=== PATIENT | female | born 1980 | race Caucasian/White ===

== ENCOUNTER 2016-08-13 19:38 | Emergency (ER) | payer OTHER ==
[2016-08-13] MEDS ORDERED: Ketorolac 60 MG/2 ML SDV IM ONE (21:08)
--- NOTE | 2016-08-13 21:09 | EDM.PDOC ---
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 She has no other complaints Symptom Onset Date: 08/13/16 Occurred When: just prior to arrival Occurred Where: work Method of Injury: direct blow Severity: mild Pain/Injury Location: Reports: upper extremity, left Consciousness: Reports: no loss of consciousness Associated Symptoms: Reports: no other symptoms Allergies/ADRs: Allergies latex Allergy (Verified 07/30/16 20:57) Rash loratadine [From Claritin-D] Allergy (Verified 07/30/16 20:57) Edema midazolam HCl [From Versed] Allergy (Verified 07/30/16 20:57) Confusion pseudoephedrine sulfate [From Claritin-D] Allergy (Verified 07/30/16 20:57) Edema Home Medications: Ambulatory Orders Norethindrone-E.estradiol-Iron [Gildess Fe 1-20] 1 tab PO DAILY 09/16/14 [ Confirmed 07/30/16] Haloperidol [Haldol] 2 mg PO Q6H #4 tab 07/30/16 Venlafaxine HCl [Venlafaxine ER] 150 mg PO DAILY 07/30/16 [Confirmed 07/30/16] Past Medical History HEENT History: Reports: Impaired vision Respiratory History: Reports: Pneumonia, recurrent Genitourinary History: Reports: Renal calculus Other Genitourinary History: Ureter stent Psychiatric History: Reports: Anxiety, Depression - Infectious Disease History Infectious Disease History: Reports: None - Past Surgical History Female Surgical History: Reports: Lithotripsy/ESWL Social & Family History - Family History Family Medical History: Noncontributory - Tobacco Use Smoking Status *Q: Never Smoker Second Hand Smoke Exposure: No - Alcohol Use Days Per Week of Alcohol Use: 0 Number of Drinks Per Day: 1 Total Drinks Per Week: 0 - Recreational Drug Use Recreational Drug Use: No Review of Systems - Review of Systems Review Of Systems: ROS reveals no pertinent complaints other than HPI. Trauma Exam - Physical Exam Exam: See Below Exam Limited By: No limitations General Appearance: Reports: alert, mild distress Head: Reports: atraumatic, normocephalic Extremities: Reports: no evidence of injury, pain with movement, tenderness, other (left 3rd and 4th digits show no swelling, hematoma, closed. review of x- ray is negative for fracture) Course - Orders/Labs/Meds Orders: Active Orders 24 hr Category Date Time Status Hand 2V Lt [CR] Stat Exams 08/13/16 20:47 Ordered - Radiology Interpretation Free Text/Narrative:: Review of x-ray shows no fracture. Will await additional confirmation from [place] radiology. Departure - Departure Time of Disposition: 21:13 Disposition: Home, Self-Care 01 Clinical Impression: Crushing injury of finger of left hand Instructions: Crush Injury, Fingers or Toes, [id number] Additional Instructions: Elevate, ice, and tape to your fingers. Pain should be controlled by alternating ibuprofen and tylenol. If not adequate you can see your primary physician No fractures seen on x-ray Please call with any questions or concerns You are ok to return to work - Problem List & Annotations (1) Crushing injury of finger of left hand SNOMED Code(s): 61907149 Code(s): S67.22XA - CRUSHING INJURY OF LEFT HAND, INITIAL ENCOUNTER Status : Acute Priority: Low Current Visit: Yes Qualifiers: Encounter type: initial encounter Qualified Code(s): S67.22XA - Crushing injury of left hand, initial encounter - Problem List Review Problem List Initiated/Reviewed/Updated: Yes - My Orders Last 24 Hours: My Active Orders 08/13/16 20:47 Hand 2V Lt [CR] Stat - Assessment/Plan Last 24 Hours: My Active Orders 08/13/16 20:47 Hand 2V Lt [CR] Stat Assessment:: crush injury to left 3rd and 4th fingers Plan: Elevate, ice, and tape to your fingers. Pain should be controlled by alternating ibuprofen and tylenol. If not adequate you can see your primary physician No fractures seen on x-ray Please call with any questions or concerns You are ok to return to work
[2016-08-14 00:11] VITALS: BP 141/87
== END 2016-08-13 21:35 | disposition home or self-care (01) ==
LOC: VM.ED 19:38
DX: S67.193A Crushing injury of left middle finger, initial encounter (principal); S67.195A Crushing injury of left ring finger, initial encounter; F41.9 Anxiety disorder, unspecified; F32.9 Major depressive disorder, single episode, unspecified; Z91.040 Latex allergy status; Z88.2 Allergy status to sulfonamides; W23.0XXA Caught, crushed, jammed, or pinched between moving objects, initial encounter; Y99.0 Civilian activity done for income or pay
CPT/HCPCS: 73120; 96372; 99283; J1885

== ENCOUNTER 2017-03-29 08:04 | Emergency (ER) | payer OTHER ==
[2017-03-29] MEDS ORDERED: Sodium Chloride 0.9% 1,000 ML IV ONE (08:24)
[2017-03-29] MEDS ORDERED: Ondansetron 4 MG/2 ML SDV IVPUSH ONE (08:24)
[2017-03-29] MEDS ORDERED: HYDROmorphone 1 MG/ML Syringe IVPUSH ONE (08:24)
[2017-03-29] MEDS ORDERED: Sodium Chloride 0.9% 10 ML Syringe FLUSH PRN (08:24)
[2017-03-29] MEDS ORDERED: Ketorolac 30 MG/ML SDV IVPUSH ONE (08:25)
[2017-03-29] MEDS ORDERED: Tamsulosin 0.4 MG Cap.ER PO ONE (08:40)
--- NOTE | 2017-03-29 08:56 | EDM.PDOC ---
ED HPI GENERAL MEDICAL PROBLEM - General Chief Complaint: Flank Pain Stated Complaint: LOWER BACK PAIN Time Seen by Provider: 03/29/17 08:40 Source of Information: Reports: Patient - History of Present Illness INITIAL COMMENTS - FREE TEXT/NARRATIVE: The patient comes in today with a severe onset right flank pain. This is consistent with previous incidents where she has had a kidney stone. Patient states it was a sudden onset has not had any other radiating pain does not complain of anything else does have nausea vomiting and is having difficulty sitting still related to the pain. Onset: Today Duration: Getting Worse Quality: Reports: Burning, Sharp, Stabbing Severity: Severe Improves with: Reports: Movement Associated Symptoms: Reports: Nausea/Vomiting Right Flank Pain Score (Numeric/FACES): 9 - Related Data Allergies Allergy/AdvReac Type Severity Reaction Status Date / Time latex Allergy Rash Verified 03/29/17 08:41 loratadine [From Claritin-D] Allergy Edema Verified 03/29/17 08:41 midazolam HCl [From Versed] Allergy Confusion Verified 03/29/17 08:41 pseudoephedrine sulfate Allergy Edema Verified 03/29/17 08:41 [From Claritin-D] Home Meds: Home Meds Norethindrone-E.estradiol-Iron [Gildess Fe 1-20] 1 tab PO DAILY 09/16/14 [ History] Venlafaxine HCl [Venlafaxine ER] 150 mg PO DAILY 07/30/16 [History] Propranolol HCl [Propranolol HCl] 20 mg PO BID 08/14/16 [History] Ketorolac [Toradol] 10 mg PO Q6H #15 tablet 03/29/17 [Rx] Tamsulosin HCl [Flomax] 0.4 mg PO 5XDAY #7 cap.er.24h 03/29/17 [Rx] oxyCODONE HCl/Acetaminophen [Percocet 10-325 mg Tablet] 1 each PO Q6HR PRN #15 tablet 03/29/17 [Rx] Past Medical History HEENT History: Reports: Impaired Vision Respiratory History: Reports: Pneumonia, Recurrent Genitourinary History: Reports: Renal Calculus Other Genitourinary History: Ureter stent Psychiatric History: Reports: Anxiety, Depression - Infectious Disease History Infectious Disease History: Reports: None - Past Surgical History Female Surgical History: Reports: Lithotripsy/ESWL Social & Family History - Family History Family Medical History: Noncontributory - Tobacco Use Smoking Status *Q: Never Smoker Second Hand Smoke Exposure: No - Alcohol Use Days Per Week of Alcohol Use: 0 Number of Drinks Per Day: 1 Total Drinks Per Week: 0 - Recreational Drug Use Recreational Drug Use: No ED ROS GENERAL - Review of Systems Review Of Systems: See Below Constitutional: Reports: No Symptoms HEENT: Reports: No Symptoms Respiratory: Reports: No Symptoms Cardiovascular: Reports: No Symptoms Endocrine: Reports: No Symptoms GI/Abdominal: Reports: No Symptoms : Reports: Flank Pain, Pain Musculoskeletal: Reports: No Symptoms Skin: Reports: No Symptoms Neurological: Reports: No Symptoms Psychiatric: Reports: No Symptoms Hematologic/Lymphatic: Reports: No Symptoms ED EXAM, GENERAL - Physical Exam Exam: See Below Exam Limited By: No Limitations General Appearance: Alert, WD/WN, No Apparent Distress Respiratory/Chest: No Respiratory Distress, Lungs Clear, No Accessory Muscle Use , Chest Non-Tender Cardiovascular: Normal Peripheral Pulses, Regular Rate, Rhythm GI/Abdominal: Normal Bowel Sounds, Soft, Non-Tender, No Distention Back Exam: Other (right side flank pain ) Extremities: Normal Inspection, Normal Range of Motion, Normal Capillary Refill Skin Exam: Warm, Dry Course - Vital Signs Last Recorded V/S: Last Vital Signs Temp 36.6 C 03/29/17 08:10 Pulse 93 03/29/17 11:33 Resp 14 03/29/17 11:33 BP 115/82 03/29/17 11:33 Pulse Ox 99 03/29/17 11:33 - Orders/Labs/Meds Orders: Active Orders 24 hr Category Date Time Status Abdomen Pelvis wo Cont [CT] Stat Exams 03/29/17 10:04 Taken Sodium Chloride 0.9% [Normal Saline] 1,000 ml Med 03/29/17 09:45 Active IV ASDIRECTED Sodium Chloride 0.9% [Normal Saline] 1,000 ml Med 03/29/17 12:00 Active IV ASDIRECTED Sodium Chloride 0.9% [Saline Flush] Med 03/29/17 08:24 Active 10 ml FLUSH ASDIRECTED PRN Peripheral IV Insertion Adult [OM.PC] Routine Oth 03/29/17 08:24 Ordered Medication Orders Sodium Chloride (Normal Saline) 1,000 mls @ 500 mls/hr IV ASDIRECTED EFREN Sodium Chloride (Normal Saline) 1,000 mls @ 1,000 mls/hr IV ASDIRECTED EFREN Last Admin: 03/29/17 12:05 Dose: 1,000 mls/hr Sodium Chloride (Saline Flush) 10 ml FLUSH ASDIRECTED PRN PRN Reason: Keep Vein Open Labs: Laboratory Tests 03/29/17 03/29/17 03/29/17 Range/Units 08:39 08:39 08:39 WBC 7.4 (4.0-10.0) x10^3/uL RBC 5.14 (4.00-5.50) x10^6/uL Hgb 13.9 (12.0-16.0) g/dL Hct 41.8 (33.0-47.0) % MCV 81.3 (78.0-93.0) fL MCH 27.0 (26.0-32.0) pg MCHC 33.3 (32.0-36.0) g/dL RDW Coeff of Nikki 13.6 (10.0-15.0) % Plt Count 306 (130-400) x10^3/uL Neut % (Auto) 56.5 (50.0-80.0) % Lymph % (Auto) 34.6 (25.0-50.0) % [place] % (Auto) 7.1 (2.0-11.0) % Eos % (Auto) 1.4 (0.0-4.0) % Baso % (Auto) 0.4 (0.2-1.2) % PT 9.9 (9.8-11.8) SEC INR 0.9 L (2.0-3.5) Sodium 140 (136-145) mmol/L Potassium 3.7 (3.5-5.1) mmol/L Chloride 105 (98-107) mmol/L Carbon Dioxide 27 (21-32) mmol/L BUN 13 (7-18) mg/dL Creatinine 1.2 H (0.55-1.02) mg/dL Est Cr Clr Drug Dosing TNP Estimated GFR (MDRD) 51 Glucose 90 (74-106) mg/dL Calcium 8.7 (8.5-10.1) mg/dL Corrected Calcium 9.26 (8.5-10.1) mg/dL Total Bilirubin 0.3 (0.2-1.0) mg/dL AST 10 L (15-37) U/L ALT 20 (14-59) U/L Alkaline Phosphatase 71 (46-116) U/L C-Reactive Protein 0.3 (<=0.9) mg/dL Total Protein 7.4 (6.4-8.2) g/dL Albumin 3.3 L (3.4-5.0) g/dL Globulin 4.1 Albumin/Globulin Ratio 0.80 Urine Color (YELLOW) Urine Appearance (CLEAR) Urine pH (5.0-8.0) Ur Specific [place] Urine Protein (NEGATIVE) mg/dL Urine Glucose (UA) (NEGATIVE) mg/dL Urine Ketones (NEGATIVE) mg/dL Urine Occult Blood (NEGATIVE) Urine Nitrite (NEGATIVE) Urine Bilirubin (NEGATIVE) Urine Urobilinogen (0.2) EU/dL Ur Leukocyte Esterase (NEGATIVE) Urine RBC (NOT SEEN) /HPF Urine WBC (NOT SEEN) /HPF Ur Squamous Epith Cells (NEGATIVE) /HPF Calcium Oxalate Crystal (NEGATIVE) /HPF Urine Bacteria (NEGATIVE) /HPF Hyaline Casts (NEGATIVE) /HPF Urine Mucus (NEGATIVE) /LPF 03/29/17 Range/Units 10:37 WBC (4.0-10.0) x10^3/uL RBC (4.00-5.50) x10^6/uL Hgb (12.0-16.0) g/dL Hct (33.0-47.0) % MCV (78.0-93.0) fL MCH (26.0-32.0) pg MCHC (32.0-36.0) g/dL RDW Coeff of Nikki (10.0-15.0) % Plt Count (130-400) x10^3/uL Neut % (Auto) (50.0-80.0) % Lymph % (Auto) (25.0-50.0) % [place] % (Auto) (2.0-11.0) % Eos % (Auto) (0.0-4.0) % Baso % (Auto) (0.2-1.2) % PT (9.8-11.8) SEC INR (2.0-3.5) Sodium (136-145) mmol/L Potassium (3.5-5.1) mmol/L Chloride (98-107) mmol/L Carbon Dioxide (21-32) mmol/L BUN (7-18) mg/dL Creatinine (0.55-1.02) mg/dL Est Cr Clr Drug Dosing Estimated GFR (MDRD) Glucose (74-106) mg/dL Calcium (8.5-10.1) mg/dL Corrected Calcium (8.5-10.1) mg/dL Total Bilirubin (0.2-1.0) mg/dL AST (15-37) U/L ALT (14-59) U/L Alkaline Phosphatase (46-116) U/L C-Reactive Protein (<=0.9) mg/dL Total Protein (6.4-8.2) g/dL Albumin (3.4-5.0) g/dL Globulin Albumin/Globulin Ratio Urine Color Yellow (YELLOW) Urine Appearance Clear (CLEAR) Urine pH 7.0 (5.0-8.0) Ur Specific [place] 1.020 Urine Protein 30 H (NEGATIVE) mg/dL Urine Glucose (UA) Negative (NEGATIVE) mg/dL Urine Ketones Trace H (NEGATIVE) mg/dL Urine Occult Blood Small H (NEGATIVE) Urine Nitrite Negative (NEGATIVE) Urine Bilirubin Negative (NEGATIVE) Urine Urobilinogen 0.2 (0.2) EU/dL Ur Leukocyte Esterase Negative (NEGATIVE) Urine RBC 5-10 H (NOT SEEN) /HPF Urine WBC 0-5 (NOT SEEN) /HPF Ur Squamous Epith Cells Few H (NEGATIVE) /HPF Calcium Oxalate Crystal Rare H (NEGATIVE) /HPF Urine Bacteria Not seen (NEGATIVE) /HPF Hyaline Casts Rare H (NEGATIVE) /HPF Urine Mucus Few H (NEGATIVE) /LPF Meds: Medications Generic Name Dose Route Start Last Admin Trade Name Freq PRN Reason Stop Dose Admin Sodium Chloride 1,000 mls @ 500 mls/hr 03/29/17 09:45 Normal Saline IV ASDIRECTED EFREN Sodium Chloride 1,000 mls @ 1,000 mls/hr 03/29/17 12:00 03/29/17 12:05 Normal Saline IV 1,000 mls/hr ASDIRECTED EFREN Administration Sodium Chloride 10 ml 03/29/17 08:24 Saline Flush FLUSH ASDIRECTED PRN Keep Vein Open Discontinued Medications Generic Name Dose Route Start Last Admin Trade Name Freq PRN Reason Stop Dose Admin Hydromorphone HCl 1 mg 03/29/17 08:24 03/29/17 08:38 Dilaudid IVPUSH 03/29/17 08:25 1 mg ONETIME ONE Administration Hydromorphone HCl 1 mg 03/29/17 09:56 03/29/17 10:07 Dilaudid IM 03/29/17 09:57 1 mg ONETIME ONE Administration Hydromorphone HCl 1 mg 03/29/17 11:23 03/29/17 11:36 Dilaudid IM 03/29/17 11:24 1 mg ONETIME ONE Administration Sodium Chloride 1,000 mls @ 1,000 mls/hr 03/29/17 08:24 03/29/17 08:30 Normal Saline IV 03/29/17 09:23 1,000 mls/hr .BOLUS ONE Administration Ketorolac Tromethamine 30 mg 03/29/17 08:25 03/29/17 08:40 Toradol IVPUSH 03/29/17 08:26 30 mg ONETIME ONE Administration Ondansetron HCl 4 mg 03/29/17 08:24 03/29/17 08:37 Zofran IVPUSH 03/29/17 08:25 4 mg ONETIME ONE Administration Tamsulosin HCl 0.4 mg 03/29/17 08:40 03/29/17 10:07 Flomax PO 03/29/17 08:41 0.4 mg ONETIME ONE Administration - Re-Assessments/Exams Free Text/Narrative Re-Assessment/Exam: 03/29/17 11:46 Urology consult with Juan regarding further treatment recommendations Departure - Departure Time of Disposition: 13:21 Disposition: Home, Self-Care 01 Condition: Good Clinical Impression: Kidney stone - Discharge Information Prescriptions: oxyCODONE HCl/Acetaminophen [Percocet 10-325 mg Tablet] 1 each PO Q6HR PRN #15 tablet PRN Reason: Pain Ketorolac [Toradol] 10 mg PO Q6H #15 tablet Tamsulosin HCl [Flomax] 0.4 mg PO 5XDAY #7 cap.er.24h Instructions: Kidney Stones, [id number] Referrals: Meaghan Willingham PA-C [Primary Care Provider] - Forms: ED Department Discharge - My Orders Last 24 Hours: My Active Orders 03/29/17 09:45 Sodium Chloride 0.9% [Normal Saline] 1,000 ml IV ASDIRECTED 03/29/17 10:04 Abdomen Pelvis wo Cont [CT] Stat 03/29/17 12:00 Sodium Chloride 0.9% [Normal Saline] 1,000 ml IV ASDIRECTED - Assessment/Plan Last 24 Hours: My Active Orders 03/29/17 09:45 Sodium Chloride 0.9% [Normal Saline] 1,000 ml IV ASDIRECTED 03/29/17 10:04 Abdomen Pelvis wo Cont [CT] Stat 03/29/17 12:00 Sodium Chloride 0.9% [Normal Saline] 1,000 ml IV ASDIRECTED
[2017-03-29 09:13] LABS: CHLORIDE,CL 105 mmol/L (98-107); SODIUM,NA 140 mmol/L (136-145)
[2017-03-29] MEDS ORDERED: Sodium Chloride 0.9% 1,000 ML IV SCH ×2 (09:45→12:00)
[2017-03-29] MEDS ORDERED: HYDROmorphone 1 MG/ML Syringe IM ONE ×2 (09:56→11:23)
[2017-03-29 16:30] VITALS: BP 121/78
== END 2017-03-29 13:20 | disposition home or self-care (01) ==
LOC: VM.ED 08:04
DX: N13.2 Hydronephrosis with renal and ureteral calculous obstruction (principal); Z91.040 Latex allergy status; Z88.8 Allergy status to other drugs, medicaments and biological substances; Z79.899 Other long term (current) drug therapy
CPT/HCPCS: 36415; 74176; 80053; 81001; 85025; 85610; 86140; 96361; 96374; 96375; 96376; 99284; A9270; J1170; J1885; J2405; J7030

== ENCOUNTER 2017-07-26 11:05 | Emergency (ER) | payer SELFPAY ==
[2017-07-26 11:56] VITALS: BP 163/92
[2017-07-26 12:51] LABS: CHLORIDE,CL 103 mmol/L (98-107); SODIUM,NA 141 mmol/L (136-145)
--- NOTE | 2017-07-26 18:54 | EDM.PDOCBH ---
ED HPI GENERAL MEDICAL PROBLEM - General Chief Complaint: Behavioral/Psych Stated Complaint: PSYCH Time Seen by Provider: 07/26/17 11:17 Source of Information: Reports: Patient History Limitations: Reports: No Limitations - History of Present Illness INITIAL COMMENTS - FREE TEXT/NARRATIVE: PtRui presents to ER with complaints of auditory hallucinations. She states that she has a history of clinical depression, psychosis, PTSD, and anxiety. She is currently taking effexor but had been on buspar and seroquel which she stopped several weeks ago, due to monetary problems. She states that she also stopped the medications because she grew somewhat attached to the voices she had been hearing, including that of her mother. She complains that she does not feel safe at home alone, as she may harm herself. She vehemently denies suicidal ideation and does not have a plan. She states that she is anxious and depressed. She is experiencing auditory hallucinations. Onset: Today Headache Pain Score (Numeric/FACES): 7 - Related Data Allergies Allergy/AdvReac Type Severity Reaction Status Date / Time latex Allergy Rash Verified 07/26/17 11:48 loratadine [From Claritin-D] Allergy Edema Verified 07/26/17 11:48 midazolam HCl [From Versed] Allergy Confusion Verified 07/26/17 11:48 pseudoephedrine sulfate Allergy Edema Verified 07/26/17 11:48 [From Claritin-D] Home Meds: Home Meds Venlafaxine [Effexor] 225 mg DAILY 07/26/17 [History] Past Medical History HEENT History: Reports: Impaired Vision Respiratory History: Reports: Pneumonia, Recurrent Genitourinary History: Reports: Renal Calculus Other Genitourinary History: Ureter stent Psychiatric History: Reports: Anxiety, Depression, Psychosis, PTSD - Infectious Disease History Infectious Disease History: Reports: None - Past Surgical History Female Surgical History: Reports: Lithotripsy/ESWL Social & Family History - Family History Family Medical History: Noncontributory - Tobacco Use Smoking Status *Q: Never Smoker Second Hand Smoke Exposure: No - Alcohol Use Days Per Week of Alcohol Use: 0 Number of Drinks Per Day: 1 Total Drinks Per Week: 0 - Recreational Drug Use Recreational Drug Use: No ED ROS GENERAL - Review of Systems Review Of Systems: See Below Constitutional: Reports: No Symptoms HEENT: Reports: No Symptoms Respiratory: Reports: No Symptoms Cardiovascular: Reports: No Symptoms Endocrine: Reports: No Symptoms GI/Abdominal: Reports: No Symptoms : Reports: No Symptoms Musculoskeletal: Reports: No Symptoms Skin: Reports: No Symptoms Neurological: Reports: No Symptoms Psychiatric: Reports: Agitation, Anxiety, Depression, Hallucinations, Other ( self harming ideation) Hematologic/Lymphatic: Reports: No Symptoms Immunologic: Reports: No Symptoms ED EXAM, BEHAVIORAL HEALTH - Physical Exam Exam: See Below Exam Limited By: No Limitations General Appearance: Alert, WD/WN, No Apparent Distress Ears: Normal External Exam, Normal Canal, Hearing Grossly Normal, Normal TMs Nose: Normal Inspection, Normal Mucosa, No Blood Throat/Mouth: Normal Inspection, Normal Lips, Normal Teeth, Normal Gums, Normal Oropharynx, Normal Voice, No Airway Compromise Head: Atraumatic, Normocephalic Neck: Normal Inspection, Supple, Non-Tender, Full Range of Motion Respiratory/Chest: No Respiratory Distress, Lungs Clear, Normal Breath Sounds, No Accessory Muscle Use, Chest Non-Tender Cardiovascular: Normal Peripheral Pulses, Regular Rate, Rhythm, No Edema, No Gallop, No JVD, No Murmur, No Rub GI/Abdominal: Normal Bowel Sounds, Soft, Non-Tender, No Organomegaly, No Distention, No Mass (Female) Exam: Deferred Rectal (Female) Exam: Deferred Back Exam: Normal Inspection, Full Range of Motion, NT Extremities: Normal Inspection, Normal Range of Motion, Non-Tender, Normal Capillary Refill, No Pedal Edema Neurological: Alert, Normal Mood/Affect, CN II-XII Intact, Normal Cognition, Normal Gait, Normal Reflexes, No Motor/Sensory Deficits, Oriented x 3 Psychiatric: Alert, Normal Cognition, Oriented, Depressed Mood, Flat Affect, Tearful, Agitated, Inattentive, Withdrawn, Auditory Hallucinations Skin Exam: Warm, Dry, Intact, Normal color, No rash COURSE, BEHAVIORAL HEALTH COMP - Course Vital Signs: Last Vital Signs Temp 36.3 C 07/26/17 11:30 Pulse 68 07/26/17 11:30 Resp 16 07/26/17 11:30 BP 163/92 H 07/26/17 11:30 Pulse Ox Orders, Labs, Meds: Laboratory Tests 07/26/17 07/26/17 07/26/17 Range/Units 12:15 12:15 12:15 WBC 7.0 (4.0-10.0) x10^3/uL RBC 5.22 (4.00-5.50) x10^6/uL Hgb 14.3 (12.0-16.0) g/dL Hct 43.1 (33.0-47.0) % MCV 82.6 (78.0-93.0) fL MCH 27.4 (26.0-32.0) pg MCHC 33.2 (32.0-36.0) g/dL RDW Coeff of Nikki 14.0 (10.0-15.0) % Plt Count 289 (130-400) x10^3/uL Neut % (Auto) 50.4 (50.0-80.0) % Lymph % (Auto) 38.7 (25.0-50.0) % [place] % (Auto) 8.5 (2.0-11.0) % Eos % (Auto) 2.0 (0.0-4.0) % Baso % (Auto) 0.4 (0.2-1.2) % PT 9.9 (9.8-11.8) SEC INR 0.9 L (2.0-3.5) Sodium 141 (136-145) mmol/L Potassium 3.7 (3.5-5.1) mmol/L Chloride 103 (98-107) mmol/L Carbon Dioxide 29 (21-32) mmol/L BUN 14 (7-18) mg/dL Creatinine 1.3 H (0.55-1.02) mg/dL Est Cr Clr Drug Dosing 52.16 mL/min Estimated GFR (MDRD) 47 Glucose 89 (74-106) mg/dL Calcium 9.3 (8.5-10.1) mg/dL Corrected Calcium 9.78 (8.5-10.1) mg/dL Total Bilirubin 0.3 (0.2-1.0) mg/dL AST 29 (15-37) U/L ALT 45 (14-59) U/L Alkaline Phosphatase 86 (46-116) U/L Total Protein 7.4 (6.4-8.2) g/dL Albumin 3.4 (3.4-5.0) g/dL Globulin 4.0 Albumin/Globulin Ratio 0.85 TSH, Ultra Sensitive 2.462 (0.358-3.74) uIU/mL POC Urine HCG, Qual Urine Opiates Screen (NEGATIVE) Ur Buprenorphine Scrn (NEGATIVE) Ur Oxycodone Screen (NEGATIVE) Urine Methadone Screen (NEGATIVE) Ur Barbituates Screen (NEGATIVE) Ur Tricyclics Screen (NEGATIVE) Ur Amphetamines Screen (NEGATIVE) U Methamphetamines Scrn (NEGATIVE) Urine MDMA Screen (NEGATIVE) U Benzodiazepines Scrn (NEGATIVE) Urine Cocaine Screen (NEGATIVE) U Marijuana (THC) Screen (NEGATIVE) Ethyl Alcohol < 3 (0-3) mg/dL 07/26/17 07/26/17 Range/Units 13:05 13:05 WBC (4.0-10.0) x10^3/uL RBC (4.00-5.50) x10^6/uL Hgb (12.0-16.0) g/dL Hct (33.0-47.0) % MCV (78.0-93.0) fL MCH (26.0-32.0) pg MCHC (32.0-36.0) g/dL RDW Coeff of Nikki (10.0-15.0) % Plt Count (130-400) x10^3/uL Neut % (Auto) (50.0-80.0) % Lymph % (Auto) (25.0-50.0) % [place] % (Auto) (2.0-11.0) % Eos % (Auto) (0.0-4.0) % Baso % (Auto) (0.2-1.2) % PT (9.8-11.8) SEC INR (2.0-3.5) Sodium (136-145) mmol/L Potassium (3.5-5.1) mmol/L Chloride (98-107) mmol/L Carbon Dioxide (21-32) mmol/L BUN (7-18) mg/dL Creatinine (0.55-1.02) mg/dL Est Cr Clr Drug Dosing mL/min Estimated GFR (MDRD) Glucose (74-106) mg/dL Calcium (8.5-10.1) mg/dL Corrected Calcium (8.5-10.1) mg/dL Total Bilirubin (0.2-1.0) mg/dL AST (15-37) U/L ALT (14-59) U/L Alkaline Phosphatase (46-116) U/L Total Protein (6.4-8.2) g/dL Albumin (3.4-5.0) g/dL Globulin Albumin/Globulin Ratio TSH, Ultra Sensitive (0.358-3.74) uIU/mL POC Urine HCG, Qual Negative Urine Opiates Screen Negative (NEGATIVE) Ur Buprenorphine Scrn Negative (NEGATIVE) Ur Oxycodone Screen Negative (NEGATIVE) Urine Methadone Screen Negative (NEGATIVE) Ur Barbituates Screen Negative (NEGATIVE) Ur Tricyclics Screen Negative (NEGATIVE) Ur Amphetamines Screen Negative (NEGATIVE) U Methamphetamines Scrn Negative (NEGATIVE) Urine MDMA Screen Negative (NEGATIVE) U Benzodiazepines Scrn Negative (NEGATIVE) Urine Cocaine Screen Negative (NEGATIVE) U Marijuana (THC) Screen Negative (NEGATIVE) Ethyl Alcohol (0-3) mg/dL Departure - Departure Time of Disposition: 15:49 Disposition: Home, Self-Care 01 Clinical Impression: Hallucinations, Depression - Discharge Information Instructions: Persistent Depressive Disorder, Adult, [id number] Referrals: Meaghan Willingham PA-C [Primary Care Provider] - Forms: ED Department Discharge Additional Instructions: Fill your buspar and start taking your medications again. Start the buspar 1 tablet once daily for 4 days, then twice daily Start the Seroquel as needed. Start with 1/2 tab every 12 hours. Then you can take 1/2 tablet every 6 hours after 4 days. Then after 4 days, up to your regualr dose. Go to [facility] next week at [facility] (. thru . next week between 9 and 2) to set up counseling. Return to ER or call 911 if you feel like you are a threat to yourself of others.
== END 2017-07-26 15:49 | disposition home or self-care (01) ==
LOC: VM.ED 11:05
DX: R44.0 Auditory hallucinations (principal); F32.9 Major depressive disorder, single episode, unspecified; Z91.040 Latex allergy status; Z88.8 Allergy status to other drugs, medicaments and biological substances; Z79.899 Other long term (current) drug therapy
CPT/HCPCS: 36415; 80053; 80305; 81025; 84443; 85025; 85610; 99285; G0480

== ENCOUNTER 2017-11-27 23:15 | Observation (INO) | payer BC ==
[2017-11-28] MEDS ORDERED: Ketorolac 15 MG/ML SDV IVPUSH ONE (00:12)
[2017-11-28] MEDS ORDERED: Sodium Chloride 0.9% 10 ML Syringe FLUSH PRN (00:12)
[2017-11-28] MEDS ORDERED: LORazepam 2 MG/ML SDV IVPUSH ONE (00:13)
--- NOTE | 2017-11-28 00:14 | EDM.PDOCBH ---
ED HPI GENERAL MEDICAL PROBLEM - General Chief Complaint: Behavioral/Psych Stated Complaint: anxiety Time Seen by Provider: 11/27/17 23:47 Source of Information: Reports: Patient, EMS Notes Reviewed History Limitations: Reports: No Limitations - History of Present Illness INITIAL COMMENTS - FREE TEXT/NARRATIVE: Patient brought in via EMS after reports of suicidality. Her was concerned that he could not leave her at home and go for work. She currently denies having suicidal thoughts, or having a plan. She does have a known history of clinical depression, anxiety, PTSD, psychosis. She does state she hears voices and that tonight they just became to intense. She saw a mental health INVENTORY CONTROL ASSISTANT yesterday who wanted to change her medications. She has counseling scheduled for next week Saturday. She states she is having pain all over with no specified area. Feels like her nerves are "on fire". She denies headache, abdominal pain. She did originally have some chest tightness, SOB and tingling to her fingers. She describes these as usual anxiety attacks and symptoms. Onset: Gradual Duration: Getting Worse Everywhere there are Nerve Endings Pain Score (Numeric/FACES): 5 - Related Data Allergies Allergy/AdvReac Type Severity Reaction Status Date / Time loratadine [From Claritin-D] Allergy Edema Verified 11/27/17 23:53 midazolam HCl [From Versed] Allergy Confusion Verified 11/27/17 23:53 pseudoephedrine sulfate Allergy Edema Verified 11/27/17 23:53 [From Claritin-D] Home Meds: Home Meds Norethindrone-E.estradiol-Iron [Hsbxeh-Lkvgcn-Vi 1-0.02(25)-75] 1 tab PO DAILY 11/27/17 [History] QUEtiapine Fumarate [Quetiapine Fumarate] 25 - 50 mg PO Q6H PRN 11/27/17 [ History] Venlafaxine HCl [Venlafaxine ER] 225 mg PO DAILY 11/27/17 [History] busPIRone HCl [Buspirone HCl] 7.5 mg PO BID 11/27/17 [History] Past Medical History HEENT History: Reports: Impaired Vision Respiratory History: Reports: Pneumonia, Recurrent Genitourinary History: Reports: Renal Calculus Other Genitourinary History: Ureter stent Psychiatric History: Reports: Anxiety, Depression, Psychosis, PTSD - Infectious Disease History Infectious Disease History: Reports: None - Past Surgical History Female Surgical History: Reports: Lithotripsy/ESWL Social & Family History - Family History Family Medical History: Noncontributory - Tobacco Use Smoking Status *Q: Never Smoker - Recreational Drug Use Recreational Drug Use: No ED ROS GENERAL - Review of Systems Review Of Systems: See Below Constitutional: Reports: No Symptoms HEENT: Reports: No Symptoms Respiratory: Reports: Shortness of Breath Cardiovascular: Reports: Chest Pain Endocrine: Reports: No Symptoms GI/Abdominal: Reports: No Symptoms : Reports: No Symptoms Musculoskeletal: Reports: No Symptoms Skin: Reports: No Symptoms Neurological: Reports: No Symptoms Psychiatric: Reports: Anxiety, Depression Hematologic/Lymphatic: Reports: No Symptoms Immunologic: Reports: No Symptoms ED EXAM, BEHAVIORAL HEALTH - Physical Exam Exam: See Below Text/Narrative:: Please use ER note for admission history and physical. Exam Limited By: No Limitations General Appearance: Alert, WD/WN, Mild Distress Eye Exam: Bilateral Eye: EOMI, Normal Inspection, PERRL Ears: Normal TMs Nose: Normal Inspection, Normal Mucosa, No Blood Throat/Mouth: Normal Inspection, Normal Lips, Normal Teeth, Normal Gums, Normal Oropharynx, Normal Voice, No Airway Compromise Head: Atraumatic, Normocephalic Neck: Normal Inspection, Supple, Non-Tender, Full Range of Motion Respiratory/Chest: No Respiratory Distress, Lungs Clear, Normal Breath Sounds, No Accessory Muscle Use, Chest Non-Tender Cardiovascular: Normal Peripheral Pulses, Regular Rate, Rhythm, No Edema, No Gallop, No JVD, No Murmur, No Rub GI/Abdominal: Normal Bowel Sounds, Soft, Non-Tender, No Organomegaly, No Distention, No Abnormal Bruit, No Mass Neurological: Alert, Normal Mood/Affect, CN II-XII Intact, Normal Cognition, Normal Gait, Normal Reflexes, No Motor/Sensory Deficits, Oriented x 3 Psychiatric: Alert, Depressed Mood, Flat Affect, Tearful, Auditory Hallucinations, Other (anxiety). No: Suicidal Plan, Suicidal Thoughts Skin Exam: Warm, Dry, Intact, Normal color, No rash COURSE, BEHAVIORAL HEALTH COMP - Course Vital Signs: Last Vital Signs Temp 36.9 C 11/27/17 23:29 Pulse 63 11/28/17 00:43 Resp 18 11/27/17 23:29 BP 145/87 H 11/28/17 00:43 Pulse Ox 98 11/28/17 00:43 Orders, Labs, Meds: Active Orders 24 hr Category Date Time Status Patient Status [ADT] Routine ADT 11/28/17 00:14 Active Sodium Chloride 0.9% [Saline Flush] Med 11/28/17 00:12 Active 10 ml FLUSH ASDIRECTED PRN Saline Lock Insert [OM.PC] Routine Oth 11/28/17 00:12 Ordered Medication Orders Acetaminophen (Tylenol) 650 mg PO Q4H PRN PRN Reason: Pain (Mild 1-3)/fever Non-Formulary Medication (Buspirone Hcl [Buspirone Hcl]) 7.5 mg PO BID EFREN Non-Formulary Medication (Norethindrone-E.Estradiol-Iron [Dwyswb-Fqmnoa-Sj 1- 0.02()-65]) 1 tab PO DAILY EFREN Non-Formulary Medication (Quetiapine Fumarate) 25 mg PO Q6H PRN PRN Reason: Anxiety Ondansetron HCl (Zofran Odt) 4 mg PO Q4H PRN PRN Reason: nausea, able to take PO Oxycodone HCl (Oxycodone) 5 mg PO Q4H PRN PRN Reason: Pain (moderate 4-6) Sodium Chloride (Saline Flush) 10 ml FLUSH ASDIRECTED PRN PRN Reason: Keep Vein Open Last Admin: 11/28/17 00:16 Dose: 10 ml Venlafaxine HCl (Effexor Xr) 225 mg PO DAILY EFREN Medications Generic Name Dose Route Start Last Admin Trade Name Freq PRN Reason Stop Dose Admin Acetaminophen 650 mg 11/28/17 01:46 Tylenol PO Q4H PRN Pain (Mild 1-3)/fever Non-Formulary Medication 7.5 mg 11/28/17 08:00 Buspirone Hcl [Buspirone Hcl] PO BID EFREN Non-Formulary Medication 1 tab 11/28/17 08:00 Norethindrone-E.Estradiol-Iron [Uzxqae-Fkorem-Ax 1-0.02()75] PO DAILY EFREN Non-Formulary Medication 25 mg 11/28/17 01:48 Quetiapine Fumarate PO Q6H PRN Anxiety Ondansetron HCl 4 mg 11/28/17 01:46 Zofran Odt PO Q4H PRN nausea, able to take PO Oxycodone HCl 5 mg 11/28/17 01:46 Oxycodone PO Q4H PRN Pain (moderate 4-6) Sodium Chloride 10 ml 11/28/17 00:12 11/28/17 00:16 Saline Flush FLUSH 10 ml ASDIRECTED PRN Administration Keep Vein Open Venlafaxine HCl 225 mg 11/28/17 08:00 Effexor Xr PO DAILY EFREN Discontinued Medications Generic Name Dose Route Start Last Admin Trade Name Freq PRN Reason Stop Dose Admin Ketorolac Tromethamine 15 mg 11/28/17 00:12 11/28/17 00:15 Toradol IVPUSH 11/28/17 00:13 15 mg ONETIME ONE Administration Lorazepam 1 mg 11/28/17 00:13 11/28/17 00:19 Ativan IVPUSH 11/28/17 00:14 1 mg ONETIME ONE Administration Quetiapine Fumarate 25 mg 11/28/17 00:27 11/28/17 00:55 Seroquel PO 11/28/17 00:28 25 mg ONETIME ONE Administration Discharge vs Psych Eval/Treatment:: 11/28/17 00:22 Patient admitted for observation over the evening. She does have medications that she is supposed to be taking as advocated by the INVENTORY CONTROL ASSISTANT she saw yesterday. She does not want the voices to go away because they have been there so long and she is afraid she will be lonely. Departure - Departure Time of Disposition: 00:10 Disposition: Refer to Observation Condition: Fair Clinical Impression: Anxiety, Depressive disorder - Discharge Information - Problem List & Annotations (1) Anxiety SNOMED Code(s): 68199410 Code(s): F41.9 - ANXIETY DISORDER, UNSPECIFIED Status: Acute Priority: Medium Current Visit: Yes (2) Depressive disorder SNOMED Code(s): 96445759 Code(s): F32.9 - MAJOR DEPRESSIVE DISORDER, SINGLE EPISODE, UNSPECIFIED Status: Acute Priority: Medium Current Visit: Yes - Problem List Review Problem List Initiated/Reviewed/Updated: Yes - My Orders Last 24 Hours: My Active Orders 11/28/17 00:12 Sodium Chloride 0.9% [Saline Flush] 10 ml FLUSH ASDIRECTED PRN Saline Lock Insert [OM.PC] Routine 11/28/17 00:14 Patient Status [ADT] Routine - Assessment/Plan Last 24 Hours: My Active Orders 11/28/17 00:12 Sodium Chloride 0.9% [Saline Flush] 10 ml FLUSH ASDIRECTED PRN Saline Lock Insert [OM.PC] Routine 11/28/17 00:14 Patient Status [ADT] Routine Assessment:: depression/anxiety Plan: Plan 1. Admit to observation 2. monitor psychiatric well being with call in AM to states screener, consult with social work nurse 3. Restart seroquel 4. As needed anti-anxiety medications
[2017-11-28] MEDS ORDERED: QUEtiapine 25 MG Tab PO ONE (00:27)
[2017-11-28] MEDS ORDERED: oxyCODONE 5 MG Tab PO PRN (01:46)
[2017-11-28] MEDS ORDERED: Ondansetron 4 MG Tab.DIS PO PRN (01:46)
[2017-11-28] MEDS ORDERED: Acetaminophen 325 MG Tab PO PRN (01:46)
[2017-11-28] MEDS ORDERED: QUEtiapine 25 MG Tab PO PRN (01:48)
[2017-11-28] MEDS ORDERED: Venlafaxine 75 MG Cap.ER PO SCH (08:00)
[2017-11-28] MEDS ORDERED: NORETHINDRONE E ESTRADIOL IRON PO SCH (08:00)
[2017-11-28] MEDS ORDERED: busPIRone 15 MG Tab PO SCH (08:00)
[2017-11-28] MEDS ORDERED: Potassium Chloride 20 MEQ Tab.ER PO ONE (11:44)
[2017-11-28 14:47] VITALS: BP 125/72
--- NOTE | 2017-11-28 15:30 | PCM.PN ---
- General Info Date of Service: 11/28/17 Admission Dx/Problem (Free Text): depression, anxiety, psychosis with auditory hallucinations Subjective Update: Patient states she feels the same as she did last night. Denies suicidality at this time. Still hearing voices. Functional Status: Reports: Pain Controlled - Review of Systems General: Reports: No Symptoms HEENT: Reports: No Symptoms Pulmonary: Reports: Shortness of Breath Cardiovascular: Reports: No Symptoms Gastrointestinal: Reports: No Symptoms Genitourinary: Reports: No Symptoms Musculoskeletal: Reports: No Symptoms Skin: Reports: No Symptoms Neurological: Reports: No Symptoms Psychiatric: Reports: Depression, Anxiety, Hallucinations (command hallucinations) - Patient Data Vitals - Most Recent: Last Vital Signs Temp 37.2 C 11/28/17 14:00 Pulse 81 11/28/17 14:00 Resp 16 11/28/17 14:00 BP 125/72 11/28/17 14:00 Pulse Ox 99 11/28/17 14:00 Weight - Most Recent: 73.482 kg I&O - Last 24 Hours: Intake & Output 11/28/17 11/28/17 11/28/17 06:59 14:59 22:59 Intake Total 550 660 Balance 550 660 Lab Results Last 24 Hours: Laboratory Results - last 24 hr 11/28/17 11/28/17 11/28/17 Range/Units 10:34 10:34 10:34 WBC 6.8 (4.0-10.0) x10^3/uL RBC 4.77 (4.00-5.50) x10^6/uL Hgb 13.1 (12.0-16.0) g/dL Hct 39.3 (33.0-47.0) % MCV 82.4 (78.0-93.0) fL MCH 27.5 (26.0-32.0) pg MCHC 33.3 (32.0-36.0) g/dL RDW Coeff of Nikki 13.5 (10.0-15.0) % Plt Count 280 (130-400) x10^3/uL Neut % (Auto) 44.7 L (50.0-80.0) % Lymph % (Auto) 43.6 (25.0-50.0) % [place] % (Auto) 8.9 (2.0-11.0) % Eos % (Auto) 2.2 (0.0-4.0) % Baso % (Auto) 0.6 (0.2-1.2) % Sodium 142 (136-145) mmol/L Potassium 3.2 L (3.5-5.1) mmol/L Chloride 106 (98-107) mmol/L Carbon Dioxide 28 (21-32) mmol/L Anion Gap 11.2 (10-20) mmol/L BUN 9 (7-18) mg/dL Creatinine 1.2 H (0.55-1.02) mg/dL Est Cr Clr Drug Dosing 56.50 mL/min Estimated GFR (MDRD) 51 Glucose 93 (74-106) mg/dL Calcium 8.2 L (8.5-10.1) mg/dL Corrected Calcium 9.08 (8.5-10.1) mg/dL Total Bilirubin 0.3 (0.2-1.0) mg/dL AST 12 L (15-37) U/L ALT 20 (14-59) U/L Alkaline Phosphatase 71 (46-116) U/L Total Protein 6.4 (6.4-8.2) g/dL Albumin 2.9 L (3.4-5.0) g/dL Globulin 3.5 Albumin/Globulin Ratio 0.83 TSH, Ultra Sensitive 8.563 H (0.358-3.74) uIU/mL Urine Color (YELLOW) Urine Appearance (CLEAR) Urine pH (5.0-8.0) Ur Specific [place] Urine Protein (NEGATIVE) mg/dL Urine Glucose (UA) (NEGATIVE) mg/dL Urine Ketones (NEGATIVE) mg/dL Urine Occult Blood (NEGATIVE) Urine Nitrite (NEGATIVE) Urine Bilirubin (NEGATIVE) Urine Urobilinogen (0.2) EU/dL Ur Leukocyte Esterase (NEGATIVE) Urine RBC (NOT SEEN) /HPF Urine WBC (NOT SEEN) /HPF Ur Squamous Epith Cells (NEGATIVE) /HPF Calcium Oxalate Crystal (NEGATIVE) /HPF Other Crystals Amorphous Sediment Urine Bacteria (NEGATIVE) /HPF Urine Mucus (NEGATIVE) /LPF Urine Opiates Screen (NEGATIVE) Ur Buprenorphine Scrn (NEGATIVE) Ur Oxycodone Screen (NEGATIVE) Urine Methadone Screen (NEGATIVE) Ur Barbiturates Screen (NEGATIVE) Ur Tricyclics Screen (NEGATIVE) Ur Amphetamine Screen (NEGATIVE) U Methamphetamines Scrn (NEGATIVE) Urine MDMA Screen (NEGATIVE) U Benzodiazepines Scrn (NEGATIVE) U Cocaine Metab Screen (NEGATIVE) U Marijuana (THC) Screen (NEGATIVE) 11/28/17 11/28/17 Range/Units 12:41 12:41 WBC (4.0-10.0) x10^3/uL RBC (4.00-5.50) x10^6/uL Hgb (12.0-16.0) g/dL Hct (33.0-47.0) % MCV (78.0-93.0) fL MCH (26.0-32.0) pg MCHC (32.0-36.0) g/dL RDW Coeff of Nikki (10.0-15.0) % Plt Count (130-400) x10^3/uL Neut % (Auto) (50.0-80.0) % Lymph % (Auto) (25.0-50.0) % [place] % (Auto) (2.0-11.0) % Eos % (Auto) (0.0-4.0) % Baso % (Auto) (0.2-1.2) % Sodium (136-145) mmol/L Potassium (3.5-5.1) mmol/L Chloride (98-107) mmol/L Carbon Dioxide (21-32) mmol/L Anion Gap (10-20) mmol/L BUN (7-18) mg/dL Creatinine (0.55-1.02) mg/dL Est Cr Clr Drug Dosing mL/min Estimated GFR (MDRD) Glucose (74-106) mg/dL Calcium (8.5-10.1) mg/dL Corrected Calcium (8.5-10.1) mg/dL Total Bilirubin (0.2-1.0) mg/dL AST (15-37) U/L ALT (14-59) U/L Alkaline Phosphatase (46-116) U/L Total Protein (6.4-8.2) g/dL Albumin (3.4-5.0) g/dL Globulin Albumin/Globulin Ratio TSH, Ultra Sensitive (0.358-3.74) uIU/mL Urine Color Dark yellow H (YELLOW) Urine Appearance Clear (CLEAR) Urine pH 6.0 (5.0-8.0) Ur Specific [place] 1.020 Urine Protein Trace H (NEGATIVE) mg/dL Urine Glucose (UA) Negative (NEGATIVE) mg/dL Urine Ketones Negative (NEGATIVE) mg/dL Urine Occult Blood Negative (NEGATIVE) Urine Nitrite Negative (NEGATIVE) Urine Bilirubin Negative (NEGATIVE) Urine Urobilinogen 0.2 (0.2) EU/dL Ur Leukocyte Esterase Negative (NEGATIVE) Urine RBC 0-5 (NOT SEEN) /HPF Urine WBC 0-5 (NOT SEEN) /HPF Ur Squamous Epith Cells Moderate H (NEGATIVE) /HPF Calcium Oxalate Crystal Few H (NEGATIVE) /HPF Other Crystals Rare Amorphous Sediment Few Urine Bacteria Not seen (NEGATIVE) /HPF Urine Mucus Rare H (NEGATIVE) /LPF Urine Opiates Screen Negative (NEGATIVE) Ur Buprenorphine Scrn Negative (NEGATIVE) Ur Oxycodone Screen Positive H (NEGATIVE) Urine Methadone Screen Negative (NEGATIVE) Ur Barbiturates Screen Negative (NEGATIVE) Ur Tricyclics Screen Negative (NEGATIVE) Ur Amphetamine Screen Negative (NEGATIVE) U Methamphetamines Scrn Negative (NEGATIVE) Urine MDMA Screen Negative (NEGATIVE) U Benzodiazepines Scrn Negative (NEGATIVE) U Cocaine Metab Screen Negative (NEGATIVE) U Marijuana (THC) Screen Negative (NEGATIVE) Med Orders - Current: Current Medications Acetaminophen (Tylenol) 650 mg PO Q4H PRN PRN Reason: Pain (Mild 1-3)/fever Buspirone HCl (Buspar) 7.5 mg PO BID [facility] Last Admin: 11/28/17 08:18 Dose: 7.5 mg Norethindrone-E. Estradiol-Iron [ Awfrly-Ofcjgb-Jx 1-0 .02 1 tab PO DAILY [facility] Last Admin: 11/28/17 12:38 Dose: Not Given Ondansetron HCl (Zofran Odt) 4 mg PO Q4H PRN PRN Reason: nausea, able to take PO Oxycodone HCl (Oxycodone) 5 mg PO Q4H PRN PRN Reason: Pain (moderate 4-6) Last Admin: 11/28/17 08:23 Dose: 5 mg Quetiapine Fumarate (Seroquel) 25 mg PO Q6H PRN PRN Reason: Anxiety Last Admin: 11/28/17 08:26 Dose: 25 mg Sodium Chloride (Saline Flush) 10 ml FLUSH ASDIRECTED PRN PRN Reason: Keep Vein Open Last Admin: 11/28/17 00:16 Dose: 10 ml Venlafaxine HCl (Effexor Xr) 225 mg PO DAILY EFREN Last Admin: 11/28/17 08:18 Dose: 225 mg Discontinued Medications Ketorolac Tromethamine (Toradol) 15 mg IVPUSH ONETIME ONE Stop: 11/28/17 00:13 Last Admin: 11/28/17 00:15 Dose: 15 mg Lorazepam (Ativan) 1 mg IVPUSH ONETIME ONE Stop: 11/28/17 00:14 Last Admin: 11/28/17 00:19 Dose: 1 mg Potassium Chloride (Klor-Con M20) 40 meq PO ONETIME ONE Stop: 11/28/17 11:45 Last Admin: 11/28/17 12:37 Dose: 40 meq Quetiapine Fumarate (Seroquel) 25 mg PO ONETIME ONE Stop: 11/28/17 00:28 Last Admin: 11/28/17 00:55 Dose: 25 mg - Exam General: Alert, Oriented, Cooperative HEENT: Pupils Equal, Pupils Reactive Lungs: Clear to Auscultation, Normal Respiratory Effort Cardiovascular: Regular Rate, Regular Rhythm GI/Abdominal Exam: Normal Bowel Sounds, Soft, Non-Tender, No Organomegaly, No Distention, No Abnormal Bruit, No Mass, Pelvis Stable Extremities: Normal Inspection, Normal Range of Motion, Non-Tender, No Pedal Edema, Normal Capillary Refill Skin: Warm, Dry, Intact Neurological: No New Focal Deficit Psy/Mental Status: Alert, Anxious, Depressed, Hallucinations - Problem List & Annotations (1) Anxiety SNOMED Code(s): 10756505 Code(s): F41.9 - ANXIETY DISORDER, UNSPECIFIED Status: Chronic Priority: Medium Current Visit: Yes (2) Depressive disorder SNOMED Code(s): 99610477 Code(s): F32.9 - MAJOR DEPRESSIVE DISORDER, SINGLE EPISODE, UNSPECIFIED Status: Acute Priority: Medium Current Visit: Yes - Problem List Review Problem List Initiated/Reviewed/Updated: Yes - My Orders Last 24 Hours: My Active Orders 11/28/17 00:12 Sodium Chloride 0.9% [Saline Flush] 10 ml FLUSH ASDIRECTED PRN Saline Lock Insert [OM.PC] Routine 11/28/17 00:14 Patient Status [ADT] Routine 11/28/17 01:46 Patient Status [ADT] Routine Oxygen Therapy [RC] .PRN Up ad Elo [RC] ASDIRECTED VTE/DVT Education [RC] .PRN Vital Signs [RC] 06,10,14,18,,02 Consult to Consumer Studies Professor [CONS] Routine Acetaminophen [Tylenol] 650 mg PO Q4H PRN Ondansetron [Zofran ODT] 4 mg PO Q4H PRN oxyCODONE 5 mg PO Q4H PRN Resuscitation Status Routine 11/28/17 01:48 QUEtiapine [SEROquel] 25 mg PO Q6H PRN 11/28/17 08:00 Norethindrone-E.estradiol-Iron [Aiioge-Tbfwtg-Nd 1-0.0275] 1 tab PO DAILY Venlafaxine [Effexor XR] 225 mg PO DAILY busPIRone [Buspar] 7.5 mg PO BID 11/28/17 12:41 DRUG SCREEN, URINE [URCHEM] Urgent MISC TEST Urgent URINALYSIS W/MICROSCOPIC [UA W/MICROSCOPIC] [URIN] Routine 11/28/17 Breakfast Regular Diet [DIET] - Assessment Assessment:: depression, anxiety - Plan Plan:: [facility] has been contacted and they are currently in the process of a possible admission. She does not wish to go to the [facility] if this is possible as she states that it scares her. She does wish to receive help. She is contradictory in that she told EMS last evening that she was suicidal and was going to overdose on her seroquel. She has denied this at all assessment with her by myself. She has attempted suicide in the past by overdosing on her seroquel. Patient was hypokelemic today at 3.2. Given 40 mEq of KCL. Transfer to [facility] approved today at 1545. Transfer S ambulance.
== END 2017-11-28 16:54 ==
LOC: VM.ED 23:15 → VM.MS 11-28 00:51 → UNDOADMOB 11-28 00:51 → VM.MS 11-28 01:46
PROVIDERS: ADMIT Nurse Practitioner Family; ATTEND Nurse Practitioner Family
DX: F41.9 Anxiety disorder, unspecified (principal); F32.9 Major depressive disorder, single episode, unspecified; Z79.899 Other long term (current) drug therapy
CPT/HCPCS: 36415; 80053; 80305; 81001; 84443; 85025; 96374; 96375; 99285; A9270; J1885; J2060; J7050; G0378